=== PATIENT | male | born 2000 | race Caucasian/White ===

== ENCOUNTER 2024-05-09 09:06 | Emergency (ER) | payer OTHER, BC, SELFPAY ==
[2024-05-09 09:24] VITALS: BP 137/95; PULSE 72; RESP 14; TEMP 36.1; O2SAT 96; BMI 28.4
--- NOTE | 2024-05-09 10:57 | ED.WOUNDLAC ---
HPI - Wound/Laceration General Chief Complaint: Laceration/Wound Stated Complaint: R thumb lac Time Seen by Provider: 05/09/24 10:19 History of Present Illness HPI narrative: This 23-year-old male comes in with an injury to his right hand. He was using a strap on a tire and he got a laceration to his right thumb. He states that his tetanus status is up-to-date. Related Data Home Medications ?Medication ?Instructions ?Recorded ?Confirmed No Known Home Medications 05/09/24 05/09/24 Allergies Allergy/AdvReac Type Severity Reaction Status Date / Time No Known Drug Allergies Allergy Verified 05/09/24 09:23 Review of Systems Status of ROS: Reports: 10 or more systems reviewed and unremarkable except as noted in History and below Narrative: Constitutional: No fevers, no weight gain or loss. Eyes: No discharge. No vision changes. HENT: No congestion, no sore throat, no ear pain. Cardiovascular: No chest pain, no palpitations. Respiratory: No shortness of breath, no wheezes, no cough. Gastrointestinal: No abdominal pain, no vomiting, no diarrhea. Genitourinary: No dysuria, no hematuria. Musculoskeletal: Normal range of motion. Skin: No rashes, no pruritis. Neurological: No dizziness, weakness, sensory change, speech change. Endo/Heme/Allergies: No bruising or bleeding. No polydipsia. Pysch: no suicidality, no anxiety, no insomnia. All other systems reviewed and are negative. PFSH PFS Social History Smoking Status: Current every day smoker What tobacco products do you use: cigarettes How often do you have a drink containing alcohol: 4 or more times a week AUDIT-C Alcohol total score: 4 Non-prescribed substance use: former substance user Non-prescribed substance use details: thc in high school Exam Narrative: Exam Narrative: Constitutional: Well-developed, well-nourished, no acute distress. HEENT: Normocephalic, atraumatic. Neck: Normal range of motion. Nontender. Supple. Heart: Regular. No murmurs. Normal rate. Intact distal pulses. Lungs: Clear to auscultation. No chest discomfort. No wheezes, rhonchi, or rales. Abdomen: Normal bowel sounds. Nontender. No rebound tenderness. Genitalia: Deferred. Back: No midline tenderness. Normal range of motion. Extremities: Normal range of motion. The proximal palmar aspect of the right thumb has a 1 cm laceration. Tendon and nerve function is intact. Skin: Intact. No rash. Warm. No erythema or pallor. Neurologic: No altered sensation. No weakness. Alert and oriented. Psychiatric: No suicidality. No anxiety or depression. No insomnia. Nursing notes and vitals signs are reviewed. Const: Vital Signs, click to edit/add: Vital Signs - 24 hr 05/09/24 09:24 Temperature 97.0 F L Pulse Rate [Pulse Oximeter] 72 Respiratory Rate 14 Blood Pressure [Ri t Upper Arm] 137/95 H Pulse Oximetry 96 Oxygen Delivery Me thod Room Air Course Vital Signs Vital signs: Initial Vital Signs Temperature 97.0 F L 05/09/24 09:24 Temperature Source Temporal Artery Scan 05/09/24 09:24 Pulse Rate 72 05/09/24 09:24 Pulse Rhythm Regular 05/09/24 09:24 Respiratory Rate 14 05/09/24 09:24 Blood Pressure 137/95 H 05/09/24 09:24 Blood Pressure Mean 109 H 05/09/24 09:24 Blood Pressure Position Sitting 05/09/24 09:24 Pulse Oximetry 96 05/09/24 09:24 Oxygen Delivery Method Room Air 05/09/24 09:24 Vital Signs Temperature 97.0 F L 05/09/24 09:24 Pulse Rate 72 05/09/24 09:24 Respiratory Rate 14 05/09/24 09:24 Blood Pressure 137/95 H 05/09/24 09:24 Pulse Oximetry 96 05/09/24 09:24 Oxygen Delivery Method Room Air 05/09/24 09:24 Temperature 97.0 F L 05/09/24 09:24 Pulse Rate 72 05/09/24 09:24 Respiratory Rate 14 05/09/24 09:24 Blood Pressure 137/95 H 05/09/24 09:24 Pulse Oximetry 96 05/09/24 09:24 Oxygen Delivery Method Room Air 05/09/24 09:24 MDM - Wound/Laceration MDM Narrative Medical decision making narrative: This patient comes in with a laceration to his right thumb that would benefit from suture repair. After anesthesia with 1% lidocaine with epinephrine, the wound was cleansed and explored to its base. I placed 3 sutures in interrupted fashion using 4.0 Ethilon suture. The wound edges were nicely approximated and a Band-Aid was then applied. Instructions regarding wound care were given including the need to return for suture removal in 7-10 days. Discharge Plan Discharge Clinical Impression: Laceration Patient Disposition: Home, Self-Care Condition: Improved Additional Instructions: Keep wound clean and dry. Follow-up for suture removal in 7-10 days. Use [id number] medicines as needed and directed. Prescriptions: No Action No Known Home Medications Follow Up/Referrals: Provider,Not a Local [Primary Care Provider] - Stand Alone Forms: TableNOWth Info Instructions
== END 2024-05-09 11:16 | disposition home or self-care (01) ==
PROVIDERS: Emergency Provider Emergency Medicine Emergency Medical Services
DX: S61.011A Laceration without foreign body of right thumb without damage to nail, initial encounter (principal); Y99.0 Civilian activity done for income or pay
CPT/HCPCS: 12001; 99283; 99284